=== PATIENT | male | born 1950 | race Caucasian/White ===

== ENCOUNTER 2020-03-08 06:38 | Outpatient (REF) | payer MEDICAID, SELFPAY ==
[2020-03-08 07:21] LABS: MANUAL DIFF FLAG NO
[2020-03-08 07:31] LABS: Basophils Percent Auto 0.8 % (0-2); Eosinophils Absolute Auto 0.3 X10*3/uL (0.0-0.4); Eosinophils Percent Auto 5.6 % (0-4); Hemoglobin 14.2 g/dl (14.0-18.0); Imm Gran Abs Auto 0.01 X10*3/uL (0.00-0.03); Imm Gran Pct Auto 0.2 % (0.0-0.4); Lymphocytes Absolute Auto 2.7 X10*3/uL (1.2-4.9); Lymphocytes Percent Auto 52.3 % (20-40); Mean Corpuscular Hemoglobin 29.8 pg (27.0-33.0); Mean Corpuscular Volume 90.3 fL (80-98); Mean Platelet Volume 9.6 fL (9.4-12.4); Monocytes Absolute Auto 0.6 X10*3/uL (0.1-1.2); Monocytes Percent Auto 11.1 % (2-11); Neutrophils Absolute Auto 1.6 X10*3/uL (2.0-8.3); Platelet Count 258 X10*3/uL (160-400); Red Blood Count 4.76 X10*6/uL (4.60-5.80); Red Cell Distribution Width 13.3 % (11.0-16.0); White Blood Count 5.2 X10*3/uL (4.8-10.8)
[2020-03-08 07:51] LABS: Alanine Aminotransferase 19 U/L (0-40); Albumin Level 4.1 g/dL (3.5-5.0); Alkaline Phosphatase 64 U/L (39-117); Anion Gap 12 (12-20); Aspartate Amino Transferase 25 U/L (5-37); Bilirubin Total 0.4 mg/dL (0.0-1.0); Blood Urea Nitrogen 28 mg/dL (9-16); Calcium 8.6 mg/dL (8.4-10.2); Carbon Dioxide 28 mmol/L (22-29); Chloride 105 mmol/L (96-108); Cholesterol 173 mg/dL; Estimated Glomerular Filt Rate 51; Glucose Fasting 96 mg/dL (60-99); HDL Cholesterol 54 mg/dL; LDL Cholesterol Calculated 100 mg/dl; Potassium 4.8 mmol/l (3.3-5.1); Sodium 140 mmol/L (135-145); Total Protein 6.6 g/dL (6.5-8.0); Triglycerides 99 mg/dL
[2020-03-08 08:12] LABS: TSH reflex Free T4 2.59 mIU/mL (0.32-4.0); Vitamin D 25-OH Total 41.7 ng/mL (>30)
== END 2020-03-08 06:39 | disposition home or self-care (01) ==
LOC: HO.LAB 06:38
PROVIDERS: Visit Provider Internal Medicine
DX: E78.5 Hyperlipidemia, unspecified (principal); R73.01 Impaired fasting glucose; J44.9 Chronic obstructive pulmonary disease, unspecified; I10 Essential (primary) hypertension; E55.9 Vitamin D deficiency, unspecified; E66.9 Obesity, unspecified
CPT/HCPCS: 36415; 80053; 80061; 82306; 84443; 85025

== ENCOUNTER → 2021-03-26 15:28 | Outpatient (BNVA) | payer MEDICAID, SELFPAY | PROVIDERS: PCP Internal Medicine; Referring Provider Internal Medicine; Visit Provider Surgery | DX: K42.9 Umbilical hernia without obstruction or gangrene (principal) | CPT/HCPCS: 99202 ==

== ENCOUNTER 2021-04-08 10:07 | Day surgery (SDC) | payer MEDICAID, SELFPAY ==
--- NOTE | 2021-04-04 15:55 | P.CONAN_ITS ---
Documented by User: Debbie Pham NP 04/04/21 16:07 HPI - Anesthesia Eval Consult details Narrative: 70yo M for Hernia Repair Umbilical with Mesh h/o polysub abuse PMFSH Active Problems Active Problems: All Active Problems (Updated 03/20/21 @ 16:16 by TREVOR Johnson) Umbilical hernia (Acute) Obesity (BMI 30-39.9) (Acute) Depression (Acute) Attention deficit disorder (ADD) (Acute) Vitamin D deficiency (Acute) Impaired fasting glucose (Acute) Primary osteoarthritis of right hip (Acute) Dyslipidemia (Acute) Chronic obstructive pulmonary disease (COPD) (Acute) Past Medical History Medical History Attention deficit disorder (ADD) Chronic obstructive pulmonary disease (COPD) Depression Dyslipidemia Hepatitis C History of alcoholism History of substance abuse Impaired fasting glucose Obesity (BMI 30-39.9) Primary osteoarthritis of right hip Vitamin D deficiency Family History Family History Father CVD (cardiovascular disease) Mother CVD (cardiovascular disease) Other Substance abuse Surgical History Surgical History History of hernia repair History of laparoscopic cholecystectomy History of shoulder surgery Social History Social History Housing: House Alcohol intake: former Patient Tobacco Use Status: Former Tobacco user e-Cigarette/Vaping Use: Never Used Second Hand Smoke Exposure: No Use of substances other than those prescribed or required for medical reasons: No Are you DNR?: No Advance Directives: No Advance Directives Information Provided: Yes service: No Current occupational status: retired Cognitive needs: No Hearing needs: No Vision needs: Yes (Reading glasses) Meds Allergies Allergy/AdvReac Type Severity Reaction Status Date / Time bee pollen [BEE STINGS] Allergy Unknown UNKNOWN Verified 03/26/21 15:40 haloperidol [From HALDOL] AdvReac Severe SEIZURES Verified 03/26/21 15:40 Home Medications Medication Instructions Recorded Confirmed Last Taken Type dextroamphetamine-amphetamine 20 1 tab PO DAILY 11/09/20 03/27/21 Unknown History mg tablet dextroamphetamine-amphetamine 30 2 tab PO QAM 11/09/20 03/27/21 Unknown History mg tablet Exam Exam Date and Time: April 04, 2021 2765 Assessment and Plan Assessment Anesthesia Assessment: Chart Reviewed Documented by User: Priyank Waite MD 04/08/21 11:00 [facility] Past Medical History Medical History Attention deficit disorder (ADD) Chronic obstructive pulmonary disease (COPD) Depression Dyslipidemia Hepatitis C History of alcoholism History of substance abuse Impaired fasting glucose Obesity (BMI 30-39.9) Primary osteoarthritis of right hip Vitamin D deficiency Family History Family History Father CVD (cardiovascular disease) Mother CVD (cardiovascular disease) Other Substance abuse Family history of problems with anesthesia: No Surgical History Surgical History History of hernia repair History of laparoscopic cholecystectomy History of shoulder surgery History of Problems with Anesthesia: No Social History Social History Housing: House Alcohol intake: former Patient Tobacco Use Status: Former Tobacco user e-Cigarette/Vaping Use: Never Used Second Hand Smoke Exposure: No Use of substances other than those prescribed or required for medical reasons: No Are you DNR?: No Advance Directives: No Advance Directives Information Provided: Yes service: No Current occupational status: retired Cognitive needs: No Hearing needs: No Vision needs: Yes (Reading glasses) Meds Allergies Allergy/AdvReac Type Severity Reaction Status Date / Time bee pollen [BEE STINGS] Allergy Unknown UNKNOWN Verified 03/26/21 15:40 haloperidol [From HALDOL] AdvReac Severe SEIZURES Verified 03/26/21 15:40 Home Medications Medication Instructions Recorded Confirmed Last Taken Type dextroamphetamine-amphetamine 20 1 tab PO DAILY 11/09/20 03/27/21 Unknown History mg tablet dextroamphetamine-amphetamine 30 2 tab PO QAM 11/09/20 03/27/21 Unknown History mg tablet Exam Airway Mallampati Class: II TM Dist: >3cm Neck ROM: Full Denture: Upper and Lower Heart: [id number] Lungs: cta b/l Assessment and Plan Assessment Anesthesia Assessment: Anesthesia Plan Discussed Final Anesthetic Review Family History of Problems with Anesthesia: No History of Problems with Anesthesia: No NPO: Yes ASA Class: III Final Preanesthetic Review: No Changes in Pt Med Stat, Meds/Allgs Chart Reviewed, Consent Obtained/Reviewed and Anes Risks/Benef Reviewed Patient Risk: Intermediate Procedure Risk: Intermediate Assessment/Block/Sedation in SS: Assess/Block/Sedation-SS Anesthetic Plan Anesthetic Plan: GA and Agree w/ Assess. and Plan Disposition: Standard PACU
--- NOTE | 2021-04-08 | ECG_ITS ---
Test Reason : COPD, ADD Blood Pressure : / mmHG Vent. Rate : 079 BPM Atrial Rate : 079 BPM P-R Int : 176 ms QRS Dur : 076 ms QT Int : 348 ms P-R-T Axes : 044 -13 063 degrees QTc Int : 399 ms Sinus rhythm with occasional Premature ventricular complexes Cannot rule out inferior infarct. abnormal ECG When compared with ECG of 21-SEP-2019 09:29, Premature ventricular complexes are now Present Cannot rule out inferior infarct. Referred By: Debbie Pham Electronically Signed By:Erasmo Nunn
[2021-04-08 10:29] VITALS: BP 148/97; PULSE 82; RESP 16; TEMP 36.8; O2SAT 98; BMI 32.7
--- NOTE | 2021-04-08 10:36 | MHC.SHP ---
Pre-Procedural Eval Section A Date of Service: 04/08/21 The patient is an INPATIENT: No Changes since office visit: Yes Patient answered all questions; No Cold of Flu in the past 2 weeks, No New Medical Problems and No Changes in Medication The History & Physical has been completed within 30 days and I have reviewed it.: Yes Section B Chief Complaint: Umbilical Hernia Allergies: Allergies Allergy/AdvReac Type Severity Reaction Status Date / Time bee pollen [BEE STINGS] Allergy Unknown UNKNOWN Verified 03/26/21 15:40 haloperidol [From HALDOL] AdvReac Severe SEIZURES Verified 03/26/21 15:40 Plan Diagnosis/Plan: Unchanged I have reviewed the history and physical and performed a pertinent physical examination on my patient. No changes have occurred unless specified.
[2021-04-08 10:44] LABS: Hematocrit 42.7 % (42.0-52.0); Hemoglobin 14.3 g/dl (14.0-18.0); Mean Corpuscular HGB Conc 33.5 g/dl (31.0-36.0); Mean Corpuscular Hemoglobin 30.2 pg (27.0-33.0); Mean Corpuscular Volume 90.3 fL (80.0-98.0); Mean Platelet Volume 9.5 fL (9.4-12.4); Platelet Count 237 X10*3/uL (160-400); Red Blood Count 4.73 X10*6/uL (4.60-5.80); Red Cell Distribution Width 13.2 % (11.0-16.0); White Blood Count 5.5 X10*3/uL (4.8-10.8)
[2021-04-08] MEDS: Lactated Ringers 1,000 ML 100 ML IVCONT (10:44)
[2021-04-08 11:00] LABS: Alanine Aminotransferase 16 U/L (0-40); Albumin Level 4.1 g/dL (3.5-5.0); Alkaline Phosphatase 65 U/L (39-117); Anion Gap 12 (12-20); Aspartate Amino Transferase 17 U/L (5-37); Bilirubin Total 0.5 mg/dL (0.0-1.0); Blood Urea Nitrogen 20 mg/dL (9-16); Calcium 9.3 mg/dL (8.4-10.2); Carbon Dioxide 23 mmol/L (22-29); Chloride 112 mmol/L (96-108); Creatinine Clr Calc Pharmacy 68.4; Estimated Glomerular Filt Rate 59; Glucose Fasting 105 mg/dL (60-99); Potassium 4.5 mmol/L (3.3-5.1); Sodium 142 mmol/L (135-145); Total Protein 6.8 g/dL (6.5-8.0)
--- NOTE | 2021-04-08 12:01 | P.OP_ITS ---
Operative Note Operative Note Date of Service: 04/08/21 Narrative: Preoperative diagnosis:Umbilical hernia Postoperative diagnosis: same Procedure: repair of umbilical hernia with mesh Surgeon: Paco Gordon MD Bakery Decorator: Yamile Mujica PA-C Anesthesia: general LMA Indications for procedure: 70-year-old male patient presenting with a palpable mass in the umbilicus which increases in size with the we measured. Patient has a previous history of a laparoscopic Cholecystectomy with an incision at the inferior surface of the umbilicus. Operative findings: umbilical hernia containing preperitoneal fat Specimen: none Estimated blood loss: 5 ml Complications: none Procedure details: patient was brought to the OR and placed in a supine position. After administering general anesthesia patient's abdomen was prepped with ChloraPrep and draped in a sterile fashion. A surgical time-out was called the consent confirmed. Patient received preoperative antibiotics and Venodyne boots were in place. Local anesthesia consisting of Sensorcaine 0.5% was infiltrated around the umbilicus. A curvilinear incision was then made over the previous incision in the lower surface of the umbilicus and carried down through subcutaneous tissue, up to the hernia sac. The hernia sac was then dissected down to the fascial edge. The sac was then reduced into the abdominal cavity. Fascial edges were further defined using electrocautery. A preperitoneal space was then created using electrocautery. A small Ventralex mesh, 4.3 cm in diameter was then obtained. This was placed in the preperitoneal space and secured to the fascia using 1 Tycron sutures. The fascia was then closed over the mesh using [id number] 1 Tycron sutures. Incision was then irrigated with saline solution and suctioned dry. Umbilical skin was then reapproximated to the fascia using a 3-0 Polysorb suture. The dermis was reapproximated using interrupted 3-0 Polysorb sutures. Skin was then closed using a running subcuticular 4-0 Polysorb suture. Steri-Strips, 2 x 2 gauze and Tegaderm were then applied. Patient tolerated the procedure well. Sponge, instrument, and needle counts were reported as correct. Patient was transferred to PACU in stable condition.
[2021-04-08 12:19] VITALS: BP 147/88; PULSE 76; RESP 12; TEMP 36.1; O2SAT 96
[2021-04-08 12:24] VITALS: BP 143/88; PULSE 70; RESP 12; O2SAT 96
[2021-04-08 12:29] VITALS: BP 134/86; PULSE 70; RESP 14; O2SAT 95
[2021-04-08 12:34] VITALS: BP 141/85; PULSE 70; RESP 16; O2SAT 96
[2021-04-08 12:49] VITALS: BP 139/81; PULSE 67; RESP 16; TEMP 36.1; O2SAT 96
== END 2021-04-08 14:34 | disposition home or self-care (01) ==
PROVIDERS: Nurse Practitioner; PCP Internal Medicine; Visit Provider Surgery
PROC: (CPT 49585; principal; 2021-04-08 11:50)
DX: K42.9 Umbilical hernia without obstruction or gangrene (principal); J44.9 Chronic obstructive pulmonary disease, unspecified; E78.5 Hyperlipidemia, unspecified; F98.8 Other specified behavioral and emotional disorders with onset usually occurring in childhood and adolescence; F32.9 Major depressive disorder, single episode, unspecified; B19.20 Unspecified viral hepatitis C without hepatic coma; R73.01 Impaired fasting glucose; E55.9 Vitamin D deficiency, unspecified; Z79.51 Long term (current) use of inhaled steroids; Z79.899 Other long term (current) drug therapy; Z88.8 Allergy status to other drugs, medicaments and biological substances; Z90.49 Acquired absence of other specified parts of digestive tract; Z87.891 Personal history of nicotine dependence
CPT/HCPCS: 49585; 36415; 80053; 85027; 93005; C1781; J0690; J1885; J2405; J3010

== ENCOUNTER → 2021-04-18 15:37 | Outpatient (BNVA) | payer MEDICAID, SELFPAY | PROVIDERS: PCP Internal Medicine; Referring Provider Internal Medicine; Visit Provider Surgery | DX: K42.9 Umbilical hernia without obstruction or gangrene (principal) | CPT/HCPCS: 99212 ==

== ENCOUNTER 2021-12-24 07:26 | Outpatient (REF) | payer MEDICAID, SELFPAY ==
[2021-12-24 07:42] LABS: MANUAL DIFF FLAG NO
[2021-12-24 07:57] LABS: Basophils Percent Auto 0.5 % (0-2); Eosinophils Absolute Auto 0.3 X10*3/uL (0.0-0.4); Eosinophils Percent Auto 4.8 % (0-4); Hematocrit 42.7 % (42.0-52.0); Hemoglobin 14.4 g/dl (14.0-18.0); Imm Gran Abs Auto 0.01 X10*3/uL (0.00-0.03); Imm Gran Pct Auto 0.2 % (0.0-0.4); Lymphocytes Absolute Auto 1.6 X10*3/uL (1.2-4.9); Lymphocytes Percent Auto 27.2 % (20-40); Mean Corpuscular HGB Conc 33.7 g/dl (31.0-36.0); Mean Platelet Volume 9.7 fL (9.4-12.4); Monocytes Absolute Auto 0.5 X10*3/uL (0.1-1.2); Monocytes Percent Auto 8.3 % (2-11); Neutrophils Absolute Auto 3.6 x10*3/uL (2.0-8.3); Platelet Count 216 X10*3/uL (160-400); Red Cell Distribution Width 13.7 % (11.0-16.0)
[2021-12-24 08:06] LABS: INTERNATIONAL NORM RATIO 0.9 (0.9-1.1); Prothrombin Time 10.7 SEC (10.0-13.1)
[2021-12-24 09:04] LABS: Alanine Aminotransferase 21 U/L (0-40); Albumin Level 4.2 g/dL (3.5-5.0); Alkaline Phosphatase 71 U/L (39-117); Aspartate Amino Transferase 25 U/L (5-37); Bilirubin Direct 0.2 mg/dL (0.0-0.5); Bilirubin Total 0.3 mg/dL (0.0-1.0); Total Protein 6.9 g/dL (6.5-8.0)
[2021-12-26 11:51] LABS: Alpha Fetoprotein 3.9 ng/mL (<6.1)
[2021-12-26 20:12] LABS: HCV Log PCR <1.18 NOT DETECTED Log IU/mL (NOT DETECTED); HepC Viral Load <15 NOT DETECTED IU/mL (NOT DETECTED)
[2021-12-30 20:52] LABS: FIB-ALT 18 U/L (9-46); FIB-Alpha-2-Macroglobulin 290 mg/dL (106-279); FIB-Apolipoprotein A1 173 mg/dL (94-176); FIB-GGT 32 U/L (3-70); FIB-Haptoglobin 175 mg/dL (43-212); FIB-Total Bilirubin 0.3 mg/dL (0.2-1.2); Liver Fibrosis Score 0.31; Liver Fibrosis Stage F1-F2; Nec Inflam Act Grade A0; Nec Inflam Act Score 0.07
== END 2021-12-24 07:27 | disposition home or self-care (01) ==
LOC: HO.LAB 07:26
PROVIDERS: PCP Internal Medicine; Visit Provider Internal Medicine
DX: K74.00 Hepatic fibrosis, unspecified (principal); B18.2 Chronic viral hepatitis C
CPT/HCPCS: 36415; 80076; 81596; 82105; 85025; 85610; 87522

== ENCOUNTER 2021-12-25 11:28 | Day surgery (SDC) | payer MEDICAID, SELFPAY ==
--- NOTE | 2021-12-25 11:50 | HO.ANESPROP2 ---
FORM[facility]LY [facility], LATER [facility] Active Problems Active Problems: All Active Problems (Updated 12/19/21 @ 10:07 by Gemini Dewey, MIGUE) Umbilical hernia (Acute) Obesity (BMI 30-39.9) (Acute) Depression (Acute) Attention deficit disorder (ADD) (Acute) Vitamin D deficiency (Acute) Impaired fasting glucose (Acute) Primary osteoarthritis of right hip (Acute) Dyslipidemia (Acute) Chronic obstructive pulmonary disease (COPD) (Acute) Past Medical History Medical History (Updated 12/19/21 @ 10:07 by Gemini Dewey RN) Attention deficit disorder (ADD) Chronic obstructive pulmonary disease (COPD) Depression Dyslipidemia Hepatitis C History of alcoholism History of substance abuse Impaired fasting glucose Obesity (BMI 30-39.9) Primary osteoarthritis of right hip Vitamin D deficiency Family History Family History Father CVD (cardiovascular disease) Mother CVD (cardiovascular disease) Other Substance abuse Family history of problems with anesthesia: No Surgical History Surgical History (Updated 12/24/21 @ 09:51 by Jennifer Alonso RN) H/O umbilical hernia repair History of hernia repair History of laparoscopic cholecystectomy History of shoulder surgery Hx of colonoscopy History of Problems with Anesthesia: No Social History Social History Housing: House Alcohol intake: former Patient Tobacco Use Status: Former Tobacco user e-Cigarette/Vaping Use: Never Used Second Hand Smoke Exposure: No Use of substances other than those prescribed or required for medical reasons: Yes Are you DNR?: No Advance Directives: No Advance Directives Information Provided: Yes service: No Current occupational status: retired Cognitive needs: No Hearing needs: No Vision needs: Yes (Reading glasses) Meds Allergies Allergy/AdvReac Type Severity Reaction Status Date / Time bee pollen [BEE STINGS] Allergy Unknown UNKNOWN Verified 12/19/21 09:52 haloperidol [From HALDOL] AdvReac Severe SEIZURES Verified 12/19/21 09:52 Active Medications: Current Medications Lactated Ringer's (Lr) 1,000 mls @ 50 mls/hr IVCONT .Q20H ELZBIETA Ondansetron HCl (Ondansetron Hcl 4 Mg/2 Ml Vial) 4 mg IVPUSH ONCE PRN PRN Reason: Nausea and Vomiting Sodium Biphosphate/Sodium Phosphate (Sodium Phosphate,Pickaway-Dibasic 133 Ml Enema) 133 ml ME ONCE PRN PRN Reason: Poor Colonoscopy Prep Results Home Medications Medication Instructions Recorded Confirmed Last Taken Type dextroamphetamine-amphetamine 20 1 tab PO DAILY 11/09/20 12/19/21 Unknown History mg tablet Exam Exam Date and Time: December 25, 2021 1150 Airway Mallampati Class: I TM Dist: >3cm Neck ROM: Full Denture: Upper and Lower Heart: rrr Lungs: clear Assessment and Plan Final Anesthetic Review Family History of Problems with Anesthesia: No History of Problems with Anesthesia: No NPO: Yes ASA Class: III Final Preanesthetic Review: No Changes in Pt Med Stat, Meds/Allgs Chart Reviewed, Consent Obtained/Reviewed and Anes Risks/Benef Reviewed Patient Risk: Intermediate Procedure Risk: Low Anesthetic Plan Anesthetic Plan: MAC: Disposition: Standard PACU
[2021-12-25 11:51] VITALS: BMI 32.3
[2021-12-25 11:54] VITALS: BP 139/84; PULSE 79; RESP 18; TEMP 36.8; O2SAT 95
[2021-12-25 11:55] VITALS: BMI 32.3
[2021-12-25] MEDS: Lactated Ringers 1,000 ML 50 ML IVCONT (12:07)
--- NOTE | 2021-12-25 13:34 | P.BOP_ITS ---
Brief Operative Note Date of Service: 12/25/21 Pre-op diagnosis: Screening Post-op diagnosis: other (Colon polyps) Procedure: Colonoscopy to the cecum with hot snare polypectomy x 3. Surgeon: Maximino Fraser Anesthesia: MAC Was an Progress Worker used for this Procedure?: No Estimated blood loss (mL): 0 Pathology: other (A. Polyp at 40cm B. Proximal ascending colon polyp C. Polyp at 12cm) Condition: stable Disposition: PACU
[2021-12-25 13:35] VITALS: BP 107/74; PULSE 66; RESP 15; TEMP 36.5; O2SAT 97
[2021-12-25 13:50] VITALS: BP 135/92; PULSE 68; RESP 18; TEMP 36.3; O2SAT 96
[2021-12-25 14:05] VITALS: BP 107/74; PULSE 66; RESP 15; TEMP 36.2; O2SAT 97
--- NOTE | 2021-12-26 04:44 | OP_ITS ---
SURGEON: Maximino Fraser MD INDICATIONS: The patient presents for followup of personal history of a tubular adenoma and serrated adenoma of the colon, and colorectal cancer screening. Full consent obtained from him for this, including risks of bleeding and perforation. PREOPERATIVE DIAGNOSIS: POSTOPERATIVE DIAGNOSIS: PROCEDURE PERFORMED: Colonoscopy to cecum with hot snare polypectomy x 3. ESTIMATED BLOOD LOSS: COMPLICATIONS: ANESTHESIA: Monitored anesthesia care. ASSISTANTS: SPECIMENS: PREOPERATIVE DIAGNOSES: Colorectal cancer screening, personal history of tubular adenoma and serrated adenoma of the colon. POSTOPERATIVE DIAGNOSES: Colorectal cancer screening, personal history of tubular adenoma and serrated adenoma of the colon, colon polyps, diverticulosis and internal hemorrhoids. DESCRIPTION OF PROCEDURE: The patient was placed in the left lateral decubitus position. The digital rectal exam revealed no abnormalities. The Olympus video pediatric colonoscope was entered into the rectum and advanced easily to the cecum. Once in the cecum, I did identify normal-appearing cecal pouch with a normal-appearing ileocecal valve. The appendiceal orifice appeared normal. The entire cecum appeared normal. The scope was then slowly withdrawn assessing all mucosal surfaces carefully. Preparation was excellent. In the proximal ascending colon, 2 or 3 folds from the ileocecal valve and in between the folds, was a slightly raised but polypoid lesion measuring about 2 cm, which was removed in piecemeal fashion by hot snare polypectomy and recovered by suction. Post polypectomy, there did not appear to be any definitive residual polyp tissue nor bleeding. At 40 cm was an approximately 8 mm polyp, which was removed by hot snare polypectomy and recovered by suction. At 12 cm was an approximately 6 mm polyp, which was removed by hot snare polypectomy and recovered by suction. The polypectomy sites all appeared clean, without any sign of residual polyp nor bleeding. I did not visualize any other polyps, colitis, nor angiodysplasia. There was a moderate amount of sigmoid diverticulosis. In the rectum, scope was retroflexed visualizing internal hemorrhoids but no other pathology. The rectal mucosa appeared normal. Scope was straightened and withdrawn from the patient. He tolerated the procedure well and was returned to the recovery area in stable condition. IMPRESSION: 1. Colon polyps. 2. Diverticulosis. 3. Internal hemorrhoids. PLAN: Given his previous history and today's findings, I would recommend a repeat colonoscopy within 1 year for further screening and surveillance. He was advised not to use any aspirin and NSAIDs for 1 week. He will also be seen in 1 year for followup of his underlying previous history of hepatitis C. He is scheduled for an upcoming liver ultrasound and has other laboratories pending from recent lab work in regard to the previous history of hepatitis C. MD ANAM Ortiz/RON / [id number] MTDD
== END 2021-12-25 14:43 | disposition home or self-care (01) ==
PROVIDERS: PCP Internal Medicine; Visit Provider Internal Medicine
PROC: 0DJD8ZZ Inspection of Lower Intestinal Tract, Via Natural or Artificial Opening Endoscopic (ICD-10-PCS; CPT 45378; principal; 2021-12-25 12:40)
DX: Z12.11 Encounter for screening for malignant neoplasm of colon (principal); Z86.010 Personal history of colon polyps; D12.2 Benign neoplasm of ascending colon; K63.5 Polyp of colon; K62.1 Rectal polyp; K57.30 Diverticulosis of large intestine without perforation or abscess without bleeding; K64.8 Other hemorrhoids; K74.00 Hepatic fibrosis, unspecified; B18.2 Chronic viral hepatitis C; F90.9 Attention-deficit hyperactivity disorder, unspecified type; J44.9 Chronic obstructive pulmonary disease, unspecified; Z79.899 Other long term (current) drug therapy; Z88.8 Allergy status to other drugs, medicaments and biological substances; F10.11 Alcohol abuse, in remission; F19.11 Other psychoactive substance abuse, in remission; Z87.891 Personal history of nicotine dependence; Z90.49 Acquired absence of other specified parts of digestive tract; Z96.641 Presence of right artificial hip joint
CPT/HCPCS: 45385; 88305

== ENCOUNTER 2022-01-15 08:28 | Outpatient (REF) | payer MEDICAID, SELFPAY ==
--- NOTE | ~2022-01-15 | US_ITS ---
EXAMINATION: US COMPLETE ABDOMEN WITH LIVER ELASTOGRAPHY CLINICAL INFORMATION: Liver fibrosis, chronic hepatitis C. COMPARISON: None. TECHNIQUE: Real-time imaging of the abdominal viscera. Noninvasive ultrasound liver fibrosis assessment is performed using Ayesha ElastPQ point quantification shear wave elastography (2D-SWE) with a C5-2 MHz transducer. Multiple elastography samples are obtained. FINDINGS: PANCREAS: Normal. The visualized pancreatic head and body are normal in appearance. The remainder of the pancreas is obscured from visualization by the overlying bowel gas. ABDOMINAL AORTA: The proximal, middle, and distal aortic segments are normal in caliber with minimal atherosclerotic calcification. INFERIOR VENA CAVA: Visualized portions are normal. LIVER: The liver demonstrates normal size, scalloped margins and coarse echogenicity. No focal lesion or intrahepatic biliary duct dilatation. The right lobe measures 15.2 cm in length. The left lobe measures 13.0 cm in length. Portal flow is hepatopedal. Shear wave liver elastography median stiffness is 1.92 m/s (reference: normal median stiffness is 1.3 m/s or less). IQR/median stiffness to assess sampling precision is 0.14 (reference: good quality data set is IQR/median stiffness of 0.15 or less). GALLBLADDER: Normal. The gallbladder is physiologically distended without evidence of stones, sludge, polyps, wall thickening or pericholecystic fluid. COMMON BILE DUCT: Normal in caliber measuring 0.68 cm in diameter. RIGHT KIDNEY: Normal. No hydronephrosis. No renal calculi or focal parenchymal lesions. The kidney measures 11.3 cm in maximum dimension. LEFT KIDNEY: Normal. No hydronephrosis. No renal calculi or focal parenchymal lesions. The kidney measures 10.8 cm in maximum dimension. SPLEEN: Normal. The spleen measures 9.5 cm in maximum dimension. FREE FLUID: None. US/US abdomen comp w elastography IMPRESSION: 1. Scalloped margins with course liver echogenicity. No focal lesion seen. 2. Mild sclerosis of the abdominal aorta without dilation. 3. Liver elastography: Median liver stiffness 1.92 m/s which corresponds to cACLD (suggestive). REFERENCE: Society of Radiologists in Ultrasound Liver Stiffness Thresholds (2020): LIVER STIFFNESS THRESHOLDS: *Liver Stiffness equal or less than 1.3 m/s: High probability of being normal. *Liver Stiffness less than 1.7 m/s: In the absence of other known clinical signs, rules out compensated advanced chronic liver disease. *Liver Stiffness 1.7-2.1 m/s: Suggestive of compensated advanced chronic liver disease but need further test for confirmation. *Liver Stiffness over 2.1 m/s: Rules in compensated advanced chronic liver disease. *Liver Stiffness over 2.4 m/s: Suggestive of clinically significant portal hypertension. QUALITY OF DATA SET: *IQR/Median value equal or less than 0.15 implies a quality data set. *IQR/Median value over 0.15 implies a poor quality data set. SIGNIFICANT CHANGE FROM PRIOR EXAM: Significant change if liver stiffness measurement is 10% or greater from prior exam. OTHER CONSIDERATIONS: The stage of liver fibrosis may be overestimated in the setting of acute hepatitis, liver inflammation, elevated liver function tests, hepatic vascular congestion, obstructive cholestasis, non-fasting state, and infiltrative diseases such as amyloidosis and lymphoma. In some patients with NAFLD, the liver stiffness thresholds for compensated advanced chronic liver disease may be lower. In causes other than viral hepatitis and NAFLD, liver stiffness thresholds are not well established.
== END 2022-01-15 08:29 | disposition home or self-care (01) ==
LOC: HO.US 08:28
PROVIDERS: Visit Provider Internal Medicine
DX: K74.00 Hepatic fibrosis, unspecified (principal); B18.2 Chronic viral hepatitis C
CPT/HCPCS: 76705; 76981

== ENCOUNTER 2022-04-16 08:33 | Outpatient (REF) | payer MEDICAID, SELFPAY | END 2022-04-16 08:34 | disposition home or self-care (01) | LOC: HO.SH 08:33 | PROVIDERS: Visit Provider Nurse Practitioner Family | DX: Z01.118 Encounter for examination of ears and hearing with other abnormal findings (principal); H90.3 Sensorineural hearing loss, bilateral | CPT/HCPCS: 92557 ==

== ENCOUNTER 2022-10-15 13:56 | Outpatient (REF) | payer MEDICAID, SELFPAY ==
--- NOTE | ~2022-10-15 | MM_ITS ---
EXAMINATION: BONE DENSITOMETRY CLINICAL INDICATION: Chronic obstructive pulmonary disease, unspecified. COMPARISON: None (current study represents initial baseline exam). TECHNIQUE: Using a [employer] DXA System (software version: 13.1) manufactured by [employer], dual-energy x-ray absorptiometry was performed of the lumbar spine and left hip. The images are of good technical quality. Summary results are attached. FINDINGS: AP SPINE L1-L4: There are degenerative changes in the lumbar spine which may cause overestimation of the lumbar bone mineral density. BMD 1.894 g/cm2, Z-score 5.5, T-score 5.6, normal. LEFT FEMUR, NECK: BMD 1.226 g/cm2, Z-score 2.0, T-score 1.2, normal. LEFT FEMUR, TOTAL: BMD 1.281 g/cm2, Z-score 1.6, T-score 1.2, normal. IDENTIFIED RISK FACTORS: Alcohol (3 or more units per day). HISTORY OF FRACTURE: None listed. MEDICATIONS: Calcium, vitamin D. MM/XR DEXA axial skeleton IMPRESSION: 1. DIAGNOSIS: Normal bone density based on the lowest T-score value of 1.2 in the femur neck and total femur applying World Health Organization criteria. 2. 10-YEAR FRACTURE RISK PREDICTION, FRAX: According to the guidelines, FRAX calculation should only be performed on patients in the osteopenia bone density category. Therefore, FRAX was not performed on this patient. 3. Treatment Recommendations: NOF guidelines recommend consideration for treatment in postmenopausal women and men age 50 and older presenting with the following: -A hip or vertebral (clinical or morphometric) fracture. -T-score less than or equal to -2.5 at the femoral neck or spine after appropriate evaluation to exclude secondary causes. -Low bone mass at the hip or spine and a 10-year fracture probability by FRAX of greater than or equal to 3% for hip fracture or greater than or equal to 20% for major osteoporotic fracture based on the [place] adapted WHO algorithm. 4. Other Recommendations: All treatment decisions require clinical judgment and consideration of individual patient factors, including patient preferences, comorbidities, previous drug use, risk factors not captured in the FRAX model (e.g. frailty, falls, vitamin D deficiency, increased bone turnover, interval significant decline in bone density) and possible under or overestimation of fracture risk by FRAX. FUTURE SCAN RECOMMENDATION: People with diagnosed cases of osteoporosis or at high risk for fracture should have regular bone mineral density tests. For patients eligible for Medicare, routine testing is allowed once every 2 years. The testing frequency can be increased to one year for patients who have rapidly progressing disease, those who are receiving or discontinuing medical therapy to restore bone mass, or have additional risk factors.
== END 2022-10-15 13:57 | disposition home or self-care (01) ==
LOC: HO.MAMMO 13:56
PROVIDERS: PCP Internal Medicine; Visit Provider Internal Medicine
DX: Z13.820 Encounter for screening for osteoporosis (principal); F10.21 Alcohol dependence, in remission; J44.9 Chronic obstructive pulmonary disease, unspecified; Z79.51 Long term (current) use of inhaled steroids
CPT/HCPCS: 77080

== ENCOUNTER 2023-02-11 06:25 | Outpatient (REF) | payer MEDICAID, SELFPAY | END 2023-02-11 06:26 | disposition home or self-care (01) | LOC: HO.LAB 06:25 | PROVIDERS: PCP Internal Medicine; Visit Provider Nurse Practitioner Family | DX: R73.01 Impaired fasting glucose (principal); Z12.5 Encounter for screening for malignant neoplasm of prostate | CPT/HCPCS: 36415; 80048; 80061; 84153; 84443 ==

== ENCOUNTER 2023-02-19 11:04 | Outpatient (AMB) | payer MEDICAID, SELFPAY ==
[2023-02-19 11:06] VITALS: BP 148/86; PULSE 76; O2SAT 96; BMI 29.3
--- NOTE | 2023-02-19 11:06 | A.OFFPC_ITS ---
Vital Signs 02/19/23 11:06 Height 5 ft 10 in Weight 204 lb BMI 29.3 BP 148/86 H Blood Pressure Location Lt brachial Position Sitting Pulse 76 Pulse Source Pulse Oximeter Pulse Oximetry (%) 96 Oxygen Delivery Method Room Air Intake Visit Reasons: Annual exam Allergies bee pollen [BEE STINGS] Allergy (Unknown, Verified 02/19/23 11:37) UNKNOWN haloperidol [From HALDOL] Adverse Reaction (Severe, Verified 02/19/23 11:37) SEIZURES Medication List - Last Reconciled 02/19/23 by TREVOR Ambrose albuterol sulfate 90 mcg/actuation 2 puffs inhalation Q6H PRN 30 days cholecalciferol (vitamin D3) 50 mcg PO DAILY 90 days dextroamphetamine-amphetamine 20 mg 1 tab PO DAILY quetiapine 800 mg (2 x 400 mg) PO BEDTIME 30 days umeclidinium 62.5 mcg/actuation (Incruse Ellipta) 1 inh inhalation DAILY 30 days Tobacco use date assessed: 02/19/23 Fall risk assessment: No Falls in past year Last assessed Fall Risk: 02/19/23 Dental Screening Dental Screen Date: 02/19/23 Did you have a dental visit in the last 12 months?: No Did you have a dental problem in the last 6 months where you did not have access to dental care?: No Was dental information given to patient?: Patient has dentist HPI HPI Comments History of Present Illness Details 72-year-old male COPD, dyslipidemia impa ired fasting glucose, ADD. Patient presents today for physical exam. Patient denies any acute concerns. Denies chest pain, palpitations, shortness of breath and syncope. Eye exam: 6 months ago Colonscopy: December 2021 by showed hyperplastic polyps; recommended 10 year follow-up. Labs and PSA review reviewed with patient in office today. Up-to-date on Tdap immunization, flu shot given office today. [facility] Medical History Bilateral impacted cerumen Obesity (BMI 30-39.9) Depression Attention deficit disorder (ADD) Vitamin D deficiency History of substance abuse History of alcoholism Impaired fasting glucose Hepatitis C Primary osteoarthritis of right hip Dyslipidemia Chronic obstructive pulmonary disease (COPD) Surgical History Hx of colonoscopy H/O umbilical hernia repair History of laparoscopic cholecystectomy History of shoulder surgery History of hernia repair Family History Father CVD (cardiovascular disease) Mother CVD (cardiovascular disease) Other Substance abuse Social History Housing: House Alcohol intake: former Patient Tobacco Use Status: Former Tobacco user e-Cigarette/Vaping Use: Never Used Second Hand Smoke Exposure: No service: No Current occupational status: retired Cognitive needs: No Hearing needs: No Vision needs: Yes (Reading glasses) Questionnaire PHQ-9 Over the last 2 weeks, how often have you been bothered by any of the following problems? 1. Little interest or pleasure in doing things: not at all 2. Feeling down, depressed, or hopeless: not at all 3. Trouble falling or staying asleep, or sleeping too much: not at all 4. Feeling tired or having little energy: not at all 5. Poor appetite or overeating: not at all 6. Feeling bad about yourself - or that you are a failure or have let yourself or your family down: not at all 7. Trouble concentrating on things, such as reading the newspaper or watching television: not at all 8. Moving or speaking so slowly that other people could have noticed. Or the opposite - being so fidgety or restless that you have been moving around a lot more than usual: not at all 9. Thoughts that you would be better off or of hurting yourself in some way: not at all Total score: 0 Depression Screening Interpretation: Negative Depression Screening Done: Yes [id number] - PHQ-9 Billing: Yes Source: Developed by Drs. Maximino Shields, Sultana Gaines, Forrest Wynn and colleagues, with an educational arun from [employer]. Thrive Questionnaire Date Thrive assessed: 02/19/23 I am a: Patient What is your living situation today?: I have a steady place to live Within the past 12 months, did the food you bought not last and you didn't have the money to get more?: Never true Within the past 12 months, did you worry whether your food would run out before you got money to buy more?: Never true Do you have trouble paying for medicines?: No Do you have trouble getting transportation to medical appointments?: No Do you have trouble paying your heating and electricity bill?: No Do you have trouble taking care of your child, family member or friend?: No Do you have trouble with day-to-day activities such as bathing, preparing meals, shopping, managing finances, etc.?: No Are you currently unemployed and looking for a job?: No Are you interested in more education?: No Please select the resources that you would like help with: None AUDIT C Alcohol Use Questionnaire (AUDIT-C) 1. How often do you have a drink containing alcohol?: Never 2. How many drinks containing alcohol do you have on a typical day when you are drinking?: 1 or 2 (0) 3. How often do you have six or more drinks on one occasion?: Never Total Score: 0 Score Reviewed/Action Taken: No ZAHRA-7 AMB Questionnaire ZAHRA-7 Date ZAHRA - 7 assessed: 02/19/23 Source: Developed by Drs. Maximino Shields, Sultana Gaines, Forrest Wynn and colleagues, with an educational arun from [employer]. Review of Systems Const Denies chills, Denies fatigue, Denies fever(s) and Denies poor appetite Eyes Denies no additional complaints ENT Reports Normal hearing present Card Denies chest pain, Denies syncope, Denies rapid heart rate and Denies dyspnea Resp Denies cough and Denies dyspnea GI Denies change in stool character, Denies constipation, Denies diarrhea, Denies nausea and Denies vomiting Denies dysuria, Denies urinary frequency and Denies urinary urgency Neuro Reports Normal hearing present, Denies confusion and Denies syncope Psych Denies confusion Endo Denies fatigue Physical exam (Primary Care) Vital Signs: Last Vital Signs Pulse 76 02/19/23 11:06 BP 148/86 H 02/19/23 11:06 Pulse Ox 96 02/19/23 11:06 Oxygen Delivery Method Room Air 02/19/23 11:06 BMI result Body Mass Index 29.3 Tobacco/Smoking Status: Tobacco use Status Tobacco use date assessed 02/19/23 02/19/23 11:11 Patient Tobacco Use Status Former Tobacco user 02/19/23 11:11 e-Cigarette/Vaping Use Never Used 02/19/23 11:11 PHQ-9: PHQ-9 Score PHQ-9: Total score 0 02/19/23 11:42 Depression Screening Interpretation: Negative Thrive Assessment: Date of Thrive Assessment Date Thrive assessed 02/19/23 02/19/23 11:11 Const General: No confusion Orientation/consciousness: No confusion HENMT Head: Yes normocephalic and Yes atraumatic Ears: external ears normal and TM's normal bilaterally General nose exam: Normal external nose present and Normal nasal mucous membranes and turbinates present Face and sinus: Yes normal facial exam and Yes sinuses nontender Mouth: moist mucous membranes Throat: Yes tonsils normal Eyes Conjunctivae: conjunctivae normal Sclerae: sclerae normal Pupils: Equal, round and reactive pupils present and Pupils normal by c onfrontation EOM: EOMs intact bilaterally Direct Ophthalmoscopy: normal light reflex Neck Neck: Yes no lymphadenopathy and Yes supple Thyroid: Thyroid normal Chest Chest palpation & inspection: normal inspection of the chest Resp Effort & Inspection: normal respiratory effort Auscultation: clear to auscultation bilaterally, no crackles, no rhonchi and no wheezes Cardio Rate: regular rate Rhythm: regular rhythm Peripheral pulses: radial pulses present and dorsalis pedis present GI Inspection: Yes normal to inspection Palpation (GI): Soft to palpation, nontender and No hepatosplenomegaly present Auscultation: normoactive bowel sounds Skin General skin exam: no rashes or lesions noted Neuro General: No confusion Cranial nerves: Yes Equal, round and reactive pupils present and Yes Normal hearing present Cognition (Neuro): normal cognition Gait exam (Neuro): Normal gait present Motor exam (neuro): 5/5 motor strength present throughout Deep tendon reflexes (DTR's): Right brachioradialis reflex intensity grade: 2+, Left brachioradialis reflex intensity grade: 2+, Right patellar reflex intensity grade: 2+ and Left patellar reflex intensity grade: 2+ Extrem General: No edema Office Procedures Flu Questionnaire Does the patient have a severe egg allergy?: No Does the patient have severe life threatening allergies?: No Does the patient have a fever or illness today?: No Has the patient ever had Guillain-[place] Syndrome?: No Has the patient ever had any past reaction to a flu shot?: No Immunizations flu vacc [id number] 6mos up(PF) 60 mcg(15 mcgx4)/0.5 mL IM syringe Performing Provider: TREVOR Ambrose [facility] Administered by: MARIA D Whitlock on 02/19/23 11:54 Dose Route Admin Location Dispensed Lot Number Expiration Date NDC Spare Person 0.5 mL IM Left Deltoid 0.5 mL [id number] 11/01/23 58255-202-15 [facility] [employer] [facility] VIS Given Date VIS Provided VIS Publication Date 02/19/23 Single Vaccine 20 Eligibility Eligibility Date Funding Source Not [facility] Eligible 02/19/23 Private Assessment and Plan Assessment & Plan (1) Chronic obstructive pulmonary disease (COPD): Code(s): J44.9 - Chronic obstructive pulmonary disease, unspecified Qualifiers: COPD type: unspecified COPD Qualified Code(s): J44.9 - Chronic obstructive pulmonary disease, unspecified Plan: Continue on Incruse Ellipta (2) Dyslipidemia: Code(s): E78.5 - Hyperlipidemia, unspecified Plan: Avoid fried foods, chicken skin, eggs, butter,margarine, pastries and?? red meat. (3) Impaired fasting glucose: Code(s): R73.01 - Impaired fasting glucose Plan: Fasting glucose within limits. (4) Depression: Code(s): F32.9 - Major depressive disorder, single episode, unspecified Qualifiers: Active/Remission status: currently active Depression Type: major depressive disorder Major depression episode severity: unspecified Major depression recurrence: recurrent Qualified Code(s): F33.9 - Major depressive disorder, recurrent, unspecified Plan: Patient's stable on quetiapine (5) Physical exam, annual: Code(s): Z00.00 - Encounter for general adult medical examination without abnormal findings Plan: Follow-up in 1 year for annual exam (6) Elevated blood pressure reading in office without diagnosis of hypertension: Code(s): R03.0 - Elevated blood-pressure reading, without diagnosis of hypertension Plan: Patient advised to follow low-salt diet. Continue to exercise. Blood pressure goal less than 140/90. Patient advised to check blood pressure at home periodically after sitting down for 3-5 minutes and keep a log and notify PCP of elevated blood pressure readings. Discussed with patient BP is remain elevated will consider starting him on blood pressure medication. Plan Follow-up in 6 months Orders: Orders Influenza [id number] Immunization Today Z23 - Encounter for immunization Coding Level of Care Code Est Pt Prev Care >65y(08836) Diagnoses Chronic obstructive pulmonary disease, unspecified COPD type J44.9 COPD type: unspecified COPD Dyslipidemia E78.5 Impaired fasting glucose R73.01 Episode of recurrent major depressive disorder, unspecified depression episode severity F33.9 Active/Remission status: currently active Depression Type: major depressive disorder Major depression episode severity: unspecified Major depression recurrence: recurrent Physical exam, annual Z00.00 Elevated blood pressure reading in office without diagnosis of hypertension R03.0
== END 2023-02-19 11:58 | disposition home or self-care (01) ==
PROVIDERS: Visit Provider Nurse Practitioner Family
DX: Z00.00 Encounter for general adult medical examination without abnormal findings (principal); J44.9 Chronic obstructive pulmonary disease, unspecified; F33.9 Major depressive disorder, recurrent, unspecified; Z23 Encounter for immunization; E78.5 Hyperlipidemia, unspecified; R73.01 Impaired fasting glucose; R03.0 Elevated blood-pressure reading, without diagnosis of hypertension
CPT/HCPCS: 90471; 90686; 99397

== ENCOUNTER 2023-09-10 10:37 | Outpatient (AMB) | payer MEDICAID, SELFPAY ==
--- NOTE | 2023-09-10 08:45 | A.OFFVIS_ITS ---
Intake Visit Reasons: Former Smoker Allergies bee pollen [BEE STINGS] Allergy (Unknown, Verified 02/19/23 11:37) UNKNOWN haloperidol [From HALDOL] Adverse Reaction (Severe, Verified 02/19/23 11:37) SEIZURES HPI HPI Former Smoker: Details: Initial telehealth/phone visit for this 72yo former smoker with a 50PYH. Patient started smoking at age 16 for 50 years at 1ppd. Quit 6 years ago in 2018 . Denies marijuana use. Denies second hand smoke exposure. Denies exposure to chemicals or substances like asbestos. . Denies known family history of lung cancer. Denies personal history of cancers. Denies chest CT in last year. . Denies recent travel outside the [place]. Denies recent respiratory illness or recent hospitalization for respiratory issues. Reports testing positive for COVID. Admits receiving COVID Vaccine x 4. . Denies fever, chills, new/worsening cough, hemoptysis, hoarseness or dysphagia. Denies significant chest pain, significant dyspnea or unintentional weight loss. Patient Lung Cancer Screening Questionnaire reviewed with patient by provider. . Shared Decision Making Completed. Patient meets criteria. Discussed in detail with patient, the risk vs benefit of LDCT screening. Patient consents to proceed with scan. Discussed and encouraged continued smoking cessation. [facility] Medical History (Updated 09/10/23 @ 10:22 by Beth Adames PA-C) Hepatitis C History of alcoholism History of substance abuse Attention deficit disorder (ADD) Impaired fasting glucose Dyslipidemia Chronic obstructive pulmonary disease (COPD) Personal history of tobacco use Depression Vitamin D deficiency Primary osteoarthritis of right hip Obesity (BMI 30-39.9) Bilateral impacted cerumen Surgical History (Updated 09/07/23 @ 10:22 by Beth Adames PA-C) History of total right hip replacement (~2011) History of reduction of closed dislocation (~2012) History of repair of right rotator cuff History of laparoscopic cholecystectomy (~2019) History of umbilical hernia repair (~2020) History of hernia repair History of liver biopsy (~2014) History of colonoscopy Family History Father CVD (cardiovascular disease) Mother CVD (cardiovascular disease) Other Substance abuse Social History (Updated 09/10/23 @ 10:23 by Beth Adames PA-C) Housing: House Alcohol intake: former Patient Tobacco Use Status: Former Tobacco user Quit Date: 2018 Years Smoked: (onset 16yo, 1ppd x 50yrs, 50pyh - quit 2018) e-Cigarette/Vaping Use: Never Used Second Hand Smoke Exposure: No service: No Current occupational status: retired Cognitive needs: No Hearing needs: No Vision needs: Yes (Reading glasses) Telehealth Telehealth Telehealth Platform: Telephone Location of provider rendering services: practice address Location of patient: address on file Patient Identification confirmed using: Name, : Yes Telehealth method: voice only Patient verbally consented to treatment: Yes Patient verbally consented to billing insurance company: Yes Patient informed of any privacy concerns related to visit: Yes Minutes spent on Phone/Video with Pt.: 15 Assessment & Plan Assessment & Plan (1) Personal history of tobacco use: Comment: (former smoker - onset 16yo, 1ppd x 50yrs, 50pyh - quit 2018) Code(s): Z87.891 - Personal history of nicotine dependence Category: Social Hx Plan: - SDM visit completed via phone. - Patient meets criteria for LDCT for lung cancer screening purposes and is asymptomatic. - Smoking cessation counseling offered. Patients can always call [phone]. - Will arrange for a LDCT scan of the chest for screening purposes at [facility]. - Risks, benefits, and alternatives were discussed in detail and the patient agrees to proceed. - Risks discussed include but are not limited to: radiation exposure, anxiety during testing and while awaiting results, false negatives, false positives and possibility of additional intervention such as further imaging or surgical procedures for benign disease. - Benefits are obviously detection of lung cancer at an early stage which can lead to improved outcomes. - Discussed the importance of screening program compliance with adherence to yearly LDCT scan as scheduled - or sooner interval scans for personalized screening regimen. - Discussed follow up plan. Our office will send a letter discussing results and if needed set up phone call and office visit based on CT findings. - Patient educated on results categorization and the management decisions for suspicious findings potentially found on the screening LDCT scan. Any patient with a Lung RADS score of 3 or 4 will be reviewed by a multidisciplinary team at [facility] to form a plan of action in regards to scan findings. - If further work up is warranted for a suspicious lung finding this will be followed by the Lung Cancer Screening program in conjunction with the Thoracic Surgery Department at [facility]. - A copy of the office note and LDCT will be sent to the patient's PCP - as well as documentation on any associated further plans of care. - Incidental findings on LDCT are the PCP's responsibility. These findings are indicated with an S finding on the LDCT Assessment. A note discussing the fi ndings will be sent to the PCP who is then responsible for further management. - All questions answered.? Coding Level of Care Code Lung Cancer Screening G0296 Diagnoses Personal history of tobacco use Z87.891
== END 2023-09-10 10:38 | disposition home or self-care (01) ==
LOC: HO.HMS 10:37
PROVIDERS: PCP Internal Medicine; Referring Provider Internal Medicine; Visit Provider Physician Assistant Medical
DX: Z87.891 Personal history of nicotine dependence (principal)
CPT/HCPCS: G0296

== ENCOUNTER → 2023-09-10 10:37 | Outpatient (BNVA) | payer MEDICAID, SELFPAY | PROVIDERS: PCP Internal Medicine; Visit Provider Physician Assistant Medical | DX: Z87.891 Personal history of nicotine dependence (principal) | CPT/HCPCS: G0296 ==

== ENCOUNTER 2023-09-11 09:22 | Outpatient (REF) | payer MEDICAID, SELFPAY ==
--- NOTE | ~2023-09-11 | CT_ITS ---
EXAMINATION: CT LOW-DOSE SCREENING CHEST WITHOUT CONTRAST CLINICAL INFORMATION: Personal history of nicotine dependence. The patient has a 47 pack-year history of smoking, having quit 9 years ago. COMPARISON: X-ray chest 08/06/2017. TECHNIQUE: Multidetector volumetric CT imaging of the chest is performed on a Siemens SOMATOM Definition scanner without contrast using low dose technique. Additional 2D coronal and sagittal reformatted images and axial 3D maximum intensity projection (MIP) images are generated on the CT workstation. This CT examination was performed using dose optimization techniques as appropriate, variously including the following: *Automated exposure control *Adjustment of mA and/or kV according to patient size (this includes techniques or standardized protocols for targeted exams where dose is matched to indication/reason for exam; i.e. extremities or head) *Use of iterative reconstruction technique TOTAL EXAM DLP: 60 mGy-cm. CTDIvol: 1.75 mGy. FINDINGS: PULMONARY NODULES: No suspicious pulmonary nodules. There are a few tiny scattered micronodules the largest measuring 3 mm in the left upper lobe (5:204). Gamez images of all have been saved. LUNGS: Lungs bilaterally symmetrically expanded. Mild emphysematous changes are seen. Bronchial thickening is noted. There is subpleural reticulation seen most prominent in the right upper lobe laterally as well as in the left lower lobe posterolaterally. Similar findings are not seen on the left. No effusion or pneumothorax. Central airways patent. MEDIASTINUM: No mediastinal, hilar or axillary adenopathy or free fluid collection. CORONARY ARTERY CALCIFICATION: Extensive. THYROID GLAND: Unremarkable to the extent seen. CARDIOVASCULAR STRUCTURES: The ascending aorta is dilated measuring 4.7 cm on a 3-D model perpendicular to a center line. Heart size normal. No pericardial effusion. CHEST WALL/AXILLA: Unremarkable. UPPER ABDOMEN: Included portions of the solid organs in the upper abdomen unremarkable on noncontrast imaging. Status post cholecystectomy. OSSEOUS STRUCTURES: Marked degenerative changes are present throughout the spine with kyphosis. CT/CT lung screening IMPRESSION: No evidence of malignancy. Subpleural reticulation seen in the right lung suggesting early interstitial disease. ASSESSMENT: 1. Lung-RADS Category 2: Benign appearance or behavior of nodules. N/A. 2. Lung-RADS Category S: Negative. There are no clinically significant or potentially clinically significant findings not related to the lungs requiring urgent additional evaluation. RECOMMENDATION: Continued routine annual low-dose CT lung screening in 1 year is recommended. An order for CT CHEST LOW DOSE CANCER SCREENING ([id number]) can be placed.
== END 2023-09-11 09:23 | disposition home or self-care (01) ==
LOC: HO.CT 09:22
PROVIDERS: PCP Internal Medicine; Visit Provider Physician Assistant Medical
DX: Z12.2 Encounter for screening for malignant neoplasm of respiratory organs (principal); Z87.891 Personal history of nicotine dependence
CPT/HCPCS: 71271

== ENCOUNTER 2024-02-19 05:57 | Outpatient (REF) | payer MEDICAID, SELFPAY ==
[2024-02-19 06:07] LABS: MANUAL DIFF FLAG NO
[2024-02-19 06:49] LABS: Basophils Percent Auto 0.2 % (0-2); Eosinophils Absolute Auto 0.2 X10*3/uL (0.0-0.4); Eosinophils Percent Auto 2.2 % (0-4); Hematocrit 41.9 % (42.0-52.0); Hemoglobin 13.7 g/dl (14.0-18.0); Imm Gran Abs Auto 0.05 X10*3/uL (0.00-0.03); Imm Gran Pct Auto 0.4 % (0.0-0.4); Lymphocytes Absolute Auto 1.2 X10*3/uL (1.2-4.9); Mean Corpuscular HGB Conc 32.7 g/dl (31.0-36.0); Mean Corpuscular Hemoglobin 30.3 pg (27.0-33.0); Mean Corpuscular Volume 92.7 fL (80.0-98.0); Mean Platelet Volume 9.8 fL (9.4-12.4); Monocytes Absolute Auto 0.9 X10*3/uL (0.1-1.2); Monocytes Percent Auto 7.9 % (2-11); Neutrophils Absolute Auto 8.7 x10*3/uL (2.0-8.3); Neutrophils Percent Auto 78.3 % (45-73); Platelet Count 209 X10*3/uL (160-400); Red Blood Count 4.52 X10*6/uL (4.60-5.80); Red Cell Distribution Width 13.6 % (11.0-16.0); White Blood Count 11.2 X10*3/uL (4.8-10.8)
[2024-02-19 07:15] LABS: Alanine Aminotransferase 28 U/L (0-40); Albumin Level 4.1 g/dL (3.5-5.0); Alkaline Phosphatase 75 U/L (39-117); Anion Gap 13 (12-20); Aspartate Amino Transferase 26 U/L (5-37); Bilirubin Total 0.4 mg/dL (0.0-1.0); Blood Urea Nitrogen 19 mg/dL (9-16); Calcium 9.4 mg/dL (8.4-10.2); Carbon Dioxide 25 mmol/L (22-29); Chloride 110 mmol/L (96-108); Cholesterol 170 mg/dL (<200); Estimated Glomerular Filt Rate > 60; Glucose Fasting 99 mg/dL (60-99); HDL Cholesterol 65 mg/dL (>40); LDL Cholesterol Calculated 93 mg/dL (<100); Potassium 4.7 mmol/L (3.3-5.1); Sodium 143 mmol/L (135-145); Total Protein 6.8 g/dL (6.5-8.0); Triglycerides 63 mg/dL (<150)
[2024-02-19 07:29] LABS: Estimated Average Glucose 108 mg/dL; Hemoglobin A1C 123.4724 umol/L; Hemoglobin A1c % 5.4 % (<6.0); Total Hemoglobin (HGBA1C) 3479.7529 umol/L
[2024-02-19 07:33] LABS: TSH reflex Free T4 2.31 uIU/mL (0.32-4.0); Vitamin D 25-OH Total 57.4 ng/mL (>30)
[2024-02-19 07:43] LABS: Folate 13.9 ng/mL (> or = 4.0); Vitamin B12 626 pg/mL (200-900)
[2024-02-25 16:42] LABS: FIB-ALT 22 U/L (9-46); FIB-Alpha-2-Macroglobulin 261 mg/dL (106-279); FIB-Apolipoprotein A1 168 mg/dL (94-176); FIB-GGT 23 U/L (3-70); FIB-Haptoglobin 141 mg/dL (43-212); FIB-Total Bilirubin 0.4 mg/dL (0.2-1.2); Liver Fibrosis Score 0.34; Liver Fibrosis Stage F1-F2; Nec Inflam Act Grade A0; Reference ID 5168591
== END 2024-02-19 05:58 | disposition home or self-care (01) ==
LOC: HO.LAB 05:57
PROVIDERS: PCP Internal Medicine; Visit Provider Internal Medicine
DX: D64.9 Anemia, unspecified (principal); E78.00 Pure hypercholesterolemia, unspecified; E55.9 Vitamin D deficiency, unspecified; R73.9 Hyperglycemia, unspecified; E53.8 Deficiency of other specified B group vitamins
CPT/HCPCS: 36415; 80053; 80061; 81596; 82306; 82607; 82746; 83036; 84443; 85025

== ENCOUNTER 2024-02-24 13:48 | Outpatient (AMB) | payer MEDICAID, SELFPAY ==
[2024-02-24 13:52] VITALS: BP 118/78; PULSE 74; O2SAT 96; BMI 28.2
--- NOTE | 2024-02-24 13:52 | MHC.PC.OV ---
Vital Signs 02/24/24 13:52 Height 5 ft 10 in Weight 196 lb 4 oz BMI 28.2 BP 118/78 Blood Pressure Location Lt brachial Position Sitting Pulse 74 Pulse Source Pulse Oximeter Pulse Oximetry (%) 96 Oxygen Delivery Method Room Air Intake Visit Reasons: Follow-up routine for Annual PT Logistics Vice President Required: No Accompanied by: Self / Same As Patient Allergies bee pollen [BEE STINGS] Allergy (Unknown, Verified 02/24/24 14:38) UNKNOWN haloperidol [From HALDOL] Adverse Reaction (Severe, Verified 02/24/24 14:38) SEIZURES Medication List - Last Reconciled 02/24/24 by Dennys Brooks MD albuterol sulfate 90 mcg/actuation 2 puffs inhalation Q6H PRN 30 days cholecalciferol (vitamin D3) 50 mcg PO DAILY 90 days multivitamin (Multiple Vitamins tablet) 1 tab PO DAILY quetiapine 800 mg (2 x 400 mg) PO BEDTIME 30 days Tobacco use date assessed: 02/24/24 Fall risk assessment: No Falls in past year Last assessed Fall Risk: 02/24/24 Dental Screening Dental Screen Date: 02/24/24 Did you have a dental visit in the last 12 months?: No Did you have a dental problem in the last 6 months where you did not have access to dental care?: No Was dental information given to patient?: No HPI Follow-up routine for Annual PT HPI Details Patient comes in today for his annual physical examination - was last seen by me in November 2020 States that he currently feels okay He denies any headaches or dizziness Denies any chest pains, no increased shortness of breath No nausea/vomiting, no abdominal pain No change in bowel habits noted He denies any acute urinary symptoms He had his follow-up labs done a few days ago - to discuss his results He had his repeat colonoscopy done by Dr. Fraser couple of years ago in 12/2021 and was recommended to have repeat colonoscopy within 1 year for further evaluation but he has not had this scheduled yet [facility] Medical History (Updated 02/28/24 @ 14:06 by Dennys Brooks MD) Overweight (BMI 25.0-29.9) Hepatitis C History of alcoholism History of substance abuse Attention deficit disorder (ADD) Impaired fasting glucose Dyslipidemia Chronic obstructive pulmonary disease (COPD) Personal history of tobacco use Depression Vitamin D deficiency Primary osteoarthritis of right hip Obesity (BMI 30-39.9) Bilateral impacted cerumen Surgical History History of total right hip replacement (~2011) History of reduction of closed dislocation (~2012) History of repair of right rotator cuff History of laparoscopic cholecystectomy (~2019) History of umbilical hernia repair (~2020) History of hernia repair History of liver biopsy (~2014) History of colonoscopy Family History Father CVD (cardiovascular disease) Mother CVD (cardiovascular disease) Other Substance abuse Social History Housing: House Alcohol intake: former Patient Tobacco Use Status: Former Tobacco user Years Smoked: (onset 16yo, 1ppd x 50yrs, 50pyh - quit 2017) e-Cigarette/Vaping Use: Never Used Second Hand Smoke Exposure: No service: No Current occupational status: retired Cognitive needs: No Hearing needs: No Vision needs: Yes (Reading glasses) Questionnaire PHQ-9 Over the last 2 weeks, how often have you been bothered by any of the following problems? 1. Little interest or pleasure in doing things: not at all 2. Feeling down, depressed, or hopeless: not at all 3. Trouble falling or staying asleep, or sleeping too much: not at all 4. Feeling tired or having little energy: not at all 5. Poor appetite or overeating: not at all 6. Feeling bad about yourself - or that you are a failure or have let yourself or your family down: not at all 7. Trouble concentrating on things, such as reading the newspaper or watching television: not at all 8. Moving or speaking so slowly that other people could have noticed. Or the opposite - being so fidgety or restless that you have been moving around a lot more than usual: not at all 9. Thoughts that you would be better off or of hurting yourself in some way: not at all Total score: 0 Depression Screening Interpretation: Negative Depression Screening Done: Yes 02013 - PHQ-9 Billing: Yes Source: Developed by Drs. Maximino Shields, Sultana BForrest Campbell and colleagues, with an educational arun from [email or web address]. Thrive Questionnaire Date Thrive assessed: 02/24/24 I am a: Patient What is your living situation today?: I have a steady place to live Within the past 12 months, did the food you bought not last and you didn't have the money to get more?: Never true Within the past 12 months, did you worry whether your food would run out before you got money to buy more?: Never true Do you have trouble paying for medicines?: No Do you have trouble getting transportation to medical appointments?: No Do you have trouble paying your heating and electricity bill?: No Do you have trouble taking care of your child, family member or friend?: No Do you have trouble with day-to-day activities such as bathing, preparing meals, shopping, managing finances, etc.?: No Are you currently unemployed and looking for a job?: No Are you interested in more education?: No Please select the resources that you would like help with: None Currently or been in a relationship where the following occur: No concerns reported THRIVE Score: 0 AUDIT C Alcohol Use Questionnaire (AUDIT-C) 1. How often do you have a drink containing alcohol?: Never 2. How many drinks containing alcohol do you have on a typical day when you are drinking?: 1 or 2 (0) 3. How often do you have six or more drinks on one occasion?: Never Total Score: 0 Score Reviewed/Action Taken: Yes ZAHRA-7 AMB Questionnaire ZAHRA-7 Date ZAHRA - 7 assessed: 02/24/24 Feeling nervous, anxious, or on edge: 0 = Not at all Not being able to stop or control worryin = Not at all Worrying too much about different things: 0 = Not at all Trouble relaxin = Not at all Being so restless that it is hard to sit still: 0 = Not at all Becoming easily annoyed or irritable: 0 = Not at all Feeling afraid as if something awful might happen: 0 = Not at all Total ZAHRA-7 score (0-4 normal; 5-9 mild; 10-14 moderate; 15-21 severe): 0 Source: Developed by Drs. Maximino Shields, Forrest Guzman and colleagues, with an educational arun from [email or web address]. Review of Systems Const Denies chills, Denies fatigue, Denies fever(s), Denies headache(s), Denies malaise and Denies weakness Eyes Denies blurry vision, Denies change in vision, Denies irritation and Denies itchy eyes ENT Denies dysphagia, Denies dizziness, Denies otalgia, Denies headache(s), Denies nasal congestion, Denies neck pain, Denies odynophagia and Denies sore throat Card Denies chest pain, Denies rapid heart rate, Denies irregular heart rhythm, Denies palpitations and Denies dyspnea Resp Denies chest congestion, Denies cough, Denies dyspnea and Denies wheezing GI Denies abdominal pain, Denies bloating, Denies constipation, Denies dysphagia, Denies heartburn, Denies diarrhea, Denies nausea, Denies odynophagia and Denies vomiting Denies hematuria, Denies difficulty urinating, Denies dysuria, Denies urinary frequency and Denies urinary urgency Musc Denies back pain, Denies arthralgias, Denies joint swelling, Denies muscle weakness and Denies neck pain Skin/Breast Denies change in pigmentation, Denies lesions, Denies rash and Denies unusual bruising Neuro Denies dizziness, Denies headache(s), Denies paresthesias and Denies weakness Endo Denies fatigue and Denies palpitations Aller/Immun Denies itchy eyes and Denies wheezing Physical exam (Primary Care) Vital Signs: Last Vital Signs Pulse 74 02/24/24 13:52 BP 118/78 02/24/24 13:52 Pulse Ox 96 02/24/24 13:52 Oxygen Delivery Method Room Air 02/24/24 13:52 BMI result Body Mass Index 28.2 Tobacco/Smoking Status: Tobacco use Status Tobacco use date assessed 02/24/24 02/24/24 13:53 Patient Tobacco Use Status Former Tobacco user 02/24/24 13:53 e-Cigarette/Vaping Use Never Used 02/24/24 13:53 PHQ-9: PHQ-9 Score PHQ-9: Total score 0 02/24/24 14:42 Depression Screening Interpretation: Negative Thrive Assessment: Date of Thrive Assessment Date Thrive assessed 02/24/24 02/24/24 13:53 Currently or been in a relationship where the following occur: No concerns reported Const General: no acute distress, alert and awake Orientation/consciousness: patient oriented x3 HENMT Head: Yes normocephalic and Yes atraumatic Ears: external ears normal, TM's normal bilaterally and EAC's normal General nose exam: No nasal discharge present Face and sinus: Yes normal facial exam and Yes sinuses nontender Teeth and gingiva: dentition normal Throat: Yes posterior oropharynx normal and Yes tonsils normal (no TP congestion) Eyes Eyelids: Yes eyelids normal Conjunctivae: conjunctivae normal Pupils: Equal, round and reactive pupils present EOM: EOMs intact bilaterally Neck Neck: Yes no lymphadenopathy and Yes supple Thyroid: Thyroid normal Resp Auscultation: clear to auscultation bilaterally, no rales and no wheezes Cardio Rate: regular rate Rhythm: regular rhythm Heart sounds: no murmurs GI Palpation (GI): Soft to palpation, nontender and No hepatosplenomegaly present Auscultation: normal bowel sounds General: Yes no CVA tenderness Back/Spine/Pelvis Back: no CVA tenderness Thoracic/Lumbar Spine: thoracic and lumbar spine normal to inspection Skin Lesions: no lesions Rashes: no rashes Neuro General: patient oriented x3, moves all extremities, no focal motor deficits and CN's II-XI intact bilaterally Cranial nerves: Yes Equal, round and reactive pupils present Cognition (Neuro): normal cognition Gait exam (Neuro): Normal gait present Extrem General: Yes no clubbing, cyanosis or edema Results Reviewed Results Reviewed: Laboratory Tests 02/19/24 06:07 WBC 11.2 H Hgb 13.7 L Hct 41.9 L Plt Count 209 Sodium 143 Potassium 4.7 Creatinine 1.10 Estimated GFR > 60 Fasting Glucose 99 Hemoglobin A1c % 5.4 Calcium 9.4 D AST 26 ALT 28 Liver Fibrosis Score 0.34 Liver Fibrosis Stage F1-F2 Triglycerides 63 Cholesterol 170 LDL Cholesterol, Calc 93 HDL Cholesterol 65 Vitamin B12 626 25-OH Vitamin D Total 57.4 TSH 2.31 Coding Level of Care Code Est Pt Prev Care >65y(01196) Diagnoses Annual physical exam Z00.00 Chronic obstructive pulmonary disease, unspecified COPD type J44.9 COPD type: unspecified COPD Dyslipidemia E78.5 Primary osteoarthritis of right hip M16.11 Impaired fasting glucose R73.01 Vitamin D deficiency E55.9 Attention deficit disorder, unspecified hyperactivity presence F98.8 Hyperactivity presence: unspecified Episode of recurrent major depressive disorder, unspecified depression episode severity F33.9 Depression Type: major depressive disorder Major depression recurrence: recurrent Active/Remission status: currently active Major depression episode severity: unspecified Overweight (BMI 25.0-29.9) E66.3 Assessment & Plan Assessment & Plan (1) Annual physical exam: Code(s): Z00.00 - Encounter for general adult medical examination without abnormal findings Category: Medical Plan: Results of his labs done a few days ago reviewed and discussed with patient He had his repeat colonoscopy done in 12/2021 and was recommended to get repeat colonoscopy in 1 year - he has yet to schedule this and is instructed to check back with Dr. Fraser regarding this [place] (2) Chronic obstructive pulmonary disease (COPD): Code(s): J44.9 - Chronic obstructive pulmonary disease, unspecified Category: Medical Qualifiers: COPD type: unspecified COPD Qualified Code(s): J44.9 - Chronic obstructive pulmonary disease, unspecified Plan: Controlled Continue Albuterol HFA 1 to 2 inhalation Q 6 hours PRN He had CT lung screening done back in September 2023 - CT came back negative (3) Dyslipidemia: Code(s): E78.5 - Hyperlipidemia, unspecified Category: Medical Plan: Results of his labs done a few days ago reviewed and discussed with patient - his cholesterol levels were within normal on his recent labs Reinforced low cholesterol diet (4) Primary osteoarthritis of right hip: Code(s): M16.11 - Unilateral primary osteoarthritis, right hip Category: Medical Plan: Continue Ibuprofen 800 mg TID PRN for pain Follow up with orthopedics (Dr. Jolly) as scheduled (5) Impaired fasting glucose: Code(s): R73.01 - Impaired fasting glucose Category: Medical Plan: His FBS was normal at 99 mg/dl and HgbA1c was at 5.4% Reinforced low calorie/low carb diet; exercise as tolerated (6) Vitamin D deficiency: Code(s): E55.9 - Vitamin D deficiency, unspecified Category: Medical Plan: Continue Vitamin D3 2000 units (50 mcg) QD (7) Attention deficit disorder (ADD): Code(s): F98.8 - Other specified behavioral and emotional disorders with onset usually occurring in childhood and adolescence Category: Medical Qualifiers: Hyperactivity presence: unspecified Qualified Code(s): F98.8 - Other specified behavioral and emotional disorders with onset usually occurring in childhood and adolescence Plan: He is no longer taking Adderall for his ADD Follow up with psychiatry as scheduled (8) Depression: Code(s): F32.9 - Major depressive disorder, single episode, unspecified Category: Medical Qualifiers: Depression Type: major depressive disorder Major depression recurrence: recurrent Active/Remission status: currently active Major depression episode severity: unspecified Qualified Code(s): F33.9 - Major depressive disorder, recurrent, unspecified Plan: Continue Quetiapine 400 mg 2 tablets daily at bedtime (dose was per previous psychiatrist) Follow-up with Psychiatry as scheduled (9) Overweight (BMI 25.0-29.9): Code(s): E66.3 - Overweight Category: Medical Plan: Reinforced diet/exercise as tolerated/lose weight Plan Follow up in 6 months
== END 2024-02-24 14:49 | disposition home or self-care (01) ==
PROVIDERS: PCP Internal Medicine; Visit Provider Internal Medicine
DX: Z00.00 Encounter for general adult medical examination without abnormal findings (principal); J44.9 Chronic obstructive pulmonary disease, unspecified; F33.9 Major depressive disorder, recurrent, unspecified; E78.5 Hyperlipidemia, unspecified; Z68.28 Body mass index [BMI] 28.0-28.9, adult; E66.3 Overweight; M16.11 Unilateral primary osteoarthritis, right hip; R73.01 Impaired fasting glucose; E55.9 Vitamin D deficiency, unspecified; F98.8 Other specified behavioral and emotional disorders with onset usually occurring in childhood and adolescence

== ENCOUNTER → 2024-02-24 13:48 | Outpatient (BNVA) | payer MEDICAID, SELFPAY | PROVIDERS: PCP Internal Medicine; Visit Provider Internal Medicine | DX: Z00.01 Encounter for general adult medical examination with abnormal findings (principal); J44.9 Chronic obstructive pulmonary disease, unspecified; E78.5 Hyperlipidemia, unspecified; M16.11 Unilateral primary osteoarthritis, right hip; R73.01 Impaired fasting glucose; E55.9 Vitamin D deficiency, unspecified; F98.8 Other specified behavioral and emotional disorders with onset usually occurring in childhood and adolescence; F33.9 Major depressive disorder, recurrent, unspecified; E66.3 Overweight; Z68.28 Body mass index [BMI] 28.0-28.9, adult; Z71.3 Dietary counseling and surveillance | CPT/HCPCS: 96127; 99397 ==

== ENCOUNTER 2024-09-19 13:10 | Outpatient (REF) | payer MEDICAID, SELFPAY ==
--- NOTE | ~2024-09-19 | CT_ITS ---
EXAMINATION: CT LUNG SCREENING HISTORY: Z87.891 - Personal history of nicotine dependence TECHNIQUE: Low dose axial images were obtained from the sternal notch to upper abdomen without IV contrast per standard departmental protocol. Sagittal and coronal reformatted images were also obtained and reviewed. One or more of the following techniques was used for dose reduction: Automated exposure control, adjustment of the mA and/or kV according to patient size, use of iterative reconstruction technique. DLP: 66 mGy-cm COMPARISON: Cade is made with the prior examination dated 09/11/2023. FINDINGS: Lung nodules: There are mild fibrotic changes particularly in the right upper lung zone. There is extensive bronchial wall thickening and partial bronchial opacification greatest in the right lung. No discrete pulmonary nodules are identified. Emphysema: mild Coronary Calcification: severe Aortic Arch Calcification: moderate Potentially Significant Incidentals : Above-described bronchial wall thickening and opacification. Additional Chest Findings: There is no pleural or pericardial effusion. No mediastinal or axillary lymphadenopathy is identified. Visualized upper abdomen: The visualized portions of the liver, spleen, and adrenals have an unremarkable unenhanced appearance. CT/CT lung screening IMPRESSION: No suspicious pulmonary nodules are identified. LUNG-RADS ASSESSMENT: Lung-RADS 2: Benign MANAGEMENT: Continue annual screening with LDCT in 12 months Category S: S Electronically signed by: Maximino Live MD 09/19/2024 03:38 PM EDT
--- OUTSIDE RECORDS SUMMARY | 2024-09-19 13:13 | XMS_ITS | Patient Health Record ---
Author Organization [facility] Address [address] [place] [id number] Care Team Providers Care Metrology Engineer Name Role Phone Todd ALVARADO, [place] Primary Care Provider Maximino Poole [phone] Allergies Allergen (clinical drug ingredient) Drug/Non Drug Allergy documented on EMR Reaction Allergy Type Onset Date Status Haldol Unknown Drug Allergy Active Reason For Referral No Information Medications Medication SIG (Take, Route, Fr equency, Duration) Notes Start Date End Date Status SEROquel 400 MG 1 tablet Orally Twice a day Active Immunizations Vaccine Route Administration Date Status Comme nts Flu vaccine no Preserv 3 and > Unknown 04/18/2014 Admin istered Flu vaccine no Preserv 3 and > Unknown 03/19/2015 Admin istered Influenza Unknown 01/02/2021 Administered Problems Problem Type SNOMED Code ICD Code Onset Dates Problem Status W/U Status Risk Notes Problem Screening for malignant neoplasm of colon (746452095) Encounter for screening for malignant neoplasm of colon (Z12.11) Active confirmed Problem History of adenomatous polyp of colon (955116634) History of adenomatous polyp of colon (Z86.010) Active confirmed Problem [id number] Chronic hepatiti s C without hepatic coma (B18.2) Active confirmed Problem Chronic hepatitis C (176191374) Chronic hepatitis C (B18.2) Active confirmed Problem Diverticulosis of colon (344789335) Diverticulosis of colon (K57.30) Active confirmed Problem Fibrosis of liver (73936080) Fibrosis of liver (K74.00) Active confirmed Plan Of Treatment Pending Test Test Name Order Date LIVER PROFILE 01/16/2015 LIVER PROFILE 05/15/2015 LIVER PROFILE 11/26/2021 LIVER PROFILE 02/24/2015 LIVER PROFILE 01/22/2015 CBC w DIFF 01/16/2015 CBC w DIFF 05/15/2015 CBC w DIFF 11/26/2021 CBC w DIFF 02/24/2015 CBC w DIFF 01/22/2015 PROTHROMBIN TIME (PT, INR) 05/15/2015 ALPHA-FETOPROTEIN,TUMOR MARKER 2 ALPHA-FETOPROTEIN,TUMOR MARKER 6 HEPATITIS C VIRAL LOAD 05/15/2015 HEPATITIS C VIRAL LOAD 01/22/2015 HEPATITIS C VIRAL LOAD 01/16/2015 HEPATITIS C VIRAL LOAD 02/24/2015 HEPATITIS C VIRAL LOAD 11/26/2021 MRI ABD W&WO CONTRAST 02/05/2014 HCV LIVER FIBROSIS, FIBRO TEST 2 US ABDOMEN COMP WITH ELASTOGRAPHY 2021 Prothrombin Time INR 11/26/2021 Hep C Viral Load 12/24/2021 Pathology 12/25/2021 US abdomen comp w elastography 2 Future Test Test Name Order Date COLONOSCOPY 01/26/2014 COLONOSCOPY 11/26/2021 Insurance Providers Payer Name Payer Address Payer Phone Subscriber Number Group Number Insured Name Patient Relationship to Insured Coverage Start Date Coverage End Date [facility] [place] [facility] [address] [place] [phone] [id number] CARLY HAAS Self - patient is the insured Medical (General) History Medical History History ICD Code Denies [place],DM,CVA,Lung disease,renal dise ase Hepatitis C-Dx'd in the 1979s when it was Non A/Non B Hepatitis-saw Dr. Adrian Blair and had a liver bx > 10 yrs ago--used IVDA in the s--he has never been treated for the Hepatitis C--he has Genotype 1a. He had a liver biopsy in July of 2014 revealing a grade 2-3/4 and stage II-III/IV. He had a minimally elevated alpha-fetoprotein level of 7.8 but a normal liver MRI in the Fall of 2013. The hepatitis C viral load was over 85,000 in July of 2014. He completed his 8 weeks of Harvoni in March of 2015 and had a nondetectable hepatitis C viral load and liver profile on May 02, 2015. ADHD Uses Seroquel for sleep Alcohol abuse--abstinent since 08/2006 Screening colonoscopy 06/2014 with removal of a small tubular adenoma and a small serrated adenoma; moderate sigmoid diverticulosis and internal hemorrhoids he was [place] [facility] [place] and in 2012 for apparent small bowel obstructions, but did not require any surgery Surgical History Surgery Date(Month/Year) Right hip replacement 2012 Rotator cuff Abdominal wall hernia Cholecystectomy-Dr. Alejandra Umbilical hernia
== END 2024-09-19 13:11 | disposition home or self-care (01) ==
LOC: HO.CT 13:10
PROVIDERS: PCP Internal Medicine; Visit Provider Physician Assistant Medical
DX: Z12.2 Encounter for screening for malignant neoplasm of respiratory organs (principal); Z87.891 Personal history of nicotine dependence
CPT/HCPCS: 71271

== ENCOUNTER → 2024-09-19 13:12 | Outpatient (BNV) | payer MEDICAID, SELFPAY | PROVIDERS: PCP Internal Medicine; Visit Provider Radiology Diagnostic Radiology | DX: F17.210 Nicotine dependence, cigarettes, uncomplicated (principal) | CPT/HCPCS: 71271 ==